=== PATIENT | male | born 1940 | race Caucasian/White ===

== ENCOUNTER 2021-07-27 17:06 | Emergency (ER) | payer MEDICARE, BC ==
[2021-07-27] MEDS ORDERED: Acetaminophen 500 MG Tab PO ONE (17:55)
--- NOTE | 2021-07-27 18:45 | PCM.EKG ---
#1 Interpretation EKG Date: 07/27/21 Time: 17:40 Rhythm: Other (Ventricular Pace) Rate (Beats/Min): 66 Comparison: NA - No Prior EKG EKG Interpretation Comments: Ventricular Paced Rhythm
--- NOTE | 2021-07-27 18:45 | EDM.PDOC ---
ED HPI GENERAL MEDICAL PROBLEM - General Chief Complaint: Respiratory Problem Stated Complaint: SOB HEADACHE TREMORS Time Seen by Provider: 07/27/21 17:44 - History of Present Illness INITIAL COMMENTS - FREE TEXT/NARRATIVE: CHIEF COMPLAINT(S): Shortness of breath HISTORY OF PRESENT ILLNESS: This is a 81-year-old man with a past medical history of CAD status post stents, prior history of CVA, CABG, hypertension who had a home positive Covid test approximately 2 days ago who comes to the emergency department with a chief complaint of shortness of breath. The patient states that he has been experiencing shortness of breath and he started to have some shaking today. He denies any chest pain, abdominal pain, nausea or vomiting. He denies any headache, blurry vision, loss of vision. He denies any trouble walking, speaking or swallowing. The daughter who is in presents states that the patient is Covid positive and given the shaking her daughter had done an ECG and they noticed that his heart rate was low so they brought him to the emergency department. She states that he has had some increased swelling in his lower extremities but denies any other symptoms. She states that he did have a fever of 102 at home. She states she called their primary care physician and they told them to come to the emergency department for monoclonal antibody infusion. REVIEW OF SYSTEMS: Constitutional: Positive for fever Eyes: Denies eye pain Ears, Nose, Mouth, & Throat: Denies earache Cardiovascular: Denies chest pain Respiratory: Positive for shortness of breath Gastrointestinal: Denies Nausea, vomiting, diarrhea, hematochezia. Genitourinary: Denies hematuria Skin:Denies a rash MSK: Positive for shaking. Denies joint pain Neurological: Denies blurred vision, numbness, tingling, weakness Psychiatric: Denies depression PAST MEDICAL HISTORY: As per history of present illness and as reviewed below otherwise noncontributory. SURGICAL HISTORY: As per history of present illness and as reviewed below otherwise noncontributory. SOCIAL HISTORY: As per history of present illness and as reviewed below otherwise noncontributory. FAMILY HISTORY: As per history of present illness and as reviewed below otherwise noncontributory. EXAMINATION OF ORGAN SYSTEMS/BODY AREAS: Constitutional: Blood pressure was 125/73, heart rate 85, respiratory rate 20 with an oxygen saturation 93% on room air. Temperature 37.3 General: Elderly man who does not appear to be in acute distress Psychiatric: Appropriate mood and affect. Eyes: No scleral icterus or conjunctival erythema ENMT: Moist mucous membranes. No pharyngeal erythema Cardiovascular: Regular, rate, and rhythm. No gallops, murmurs, or rubs. Bilateral upper extremity pulses symmetric and intact. 1+ pitting edema of the bilateral lower extremities. No JVD. Respiratory: Lungs clear to auscultation bilaterally. No wheezes, rales, or rhonchi. Speaking in full sentences. Gastrointestinal: Soft, non-tender, non-distended. Normoactive bowel sounds Genitourinary: No suprapubic tenderness Musculoskeletal: Normal range of motion. Skin: No lesions or abrasions. Neurological: Alert, GCS 15 MEDICAL DECISION MAKING AND COURSE IN THE ED WITH INTERPRETATION/REVIEW OF DIAGNOSTIC STUDIES: This is a 81-year-old man with a past medical history of CAD status post stent and CABG, hypertension and recent diagnosis of COVID-19 at home who comes to the emergency department with acute shortness of breath, shaking, and lower extremity edema who is mildly hypoxic but appears well. At this time we did obtain a screening EKG given the concern for bradycardia. It did reveal a ventricularly paced rhythm. At this time we will interrogate the device to evaluate for any other rhythms and to interrogate if the device is working appropriately. Will obtain a urinalysis, CBC, CMP, troponin, BNP, chest x-ray. Cardiac monitoring at this time did reveal a ventricular paced rhythm at 66 and pulse oximetry with good waveform was 93 to 94% on room air. Laboratory: CBC reveals a normocytic anemia with a hemoglobin 11.2 hematocrit of 34.6 which is unchanged from prior. INR is normal. Lactic acid is 1.0. COVID- 19 PCR is positive. BNP is mildly elevated at 214. CMP reveals elevated creatinine at 1.6, this is unchanged from July 23, 2021. The BUN did improve from 20 down to 17., Hyperglycemia at 109, hypocalcemia at 7.5, elevation in alkaline phosphatase at 140 which is improved from July 23, 2021. Hypoalbuminemia at 3.0. Urinalysis is negative. The radiological images were viewed by myself along with reading the report from the radiologist. Chest x-ray reveals a small left pleural effusion with some linear opacities in the lower mid left lung. There is a more focal density within the left midlung measuring 2.5 cm. This could be an area of focal atelectasis or pneumonia, loculated pleural fluid or underlying mass. Given that the patient's oxygenation is within normal limits, the patient is not tachypneic I do believe the x-ray findings are likely secondary to COVID-19 given that he was just recently diagnosed 3 days ago. He does have small left pleural effusion however his BNP is not elevated and again that he is not hypertensive or hypoxic. I do believe that diuresis in this patient will likely worsen outcome therefore we will hold off at this time. I did discuss the results with the daughter and patient at bedside. In addition the interrogation of the defibrillator/pacemaker did reveal 2 episodes of 8-second ventricular tachycardia which was paced out. There is no defibrillation. The pacemaker is working as appropriate. At this time I did discuss benefits and risks of monoclonal antibody infusion. I did discuss strict return precautions. They were amenable to discharge at this time and had no further questions. DISPOSITION: The patient was discharged home in stable condition. The patient will follow up with for his infusion likely tomorrow with his primary care suzanne mueller after the 10-day isolation. CONDITION: Fair PROCEDURES: Cardiac monitoring interpretation, pulse oximetry interpretation FINAL IMPRESSION(S)/DIAGNOSES: 1. Acute dyspnea secondary to COVID-19 pneumonia 2. Acute small left-sided pleural effusion Critical Care Procedure Note Authorized and performed by: Tirso Pendleton M.D. Critical Care Time: 40 minutes Due to a high probability of clinically significant, life threatening deterioration, the patient required my highest level of preparedness to intervene emergently and I personally spent this critical care time directly and personally managing the patient. This critical care time included obtaining a history, examining the patient, pulse oximetry; ordering and review of studies; arranging urgent treatment with development of a management plan; evaluation of a patients reponse to treatment; frequent assessment; and discussions with other providers. This critical care time was performed to assess and manage the high probability of imminent, life threatening deterioration that could result in multiorgan failure. It was exclusive of separate billable procedures and treating other patients. Please see MDM section and rest of the note for further information on patient assessment and treatment. Please see MDM section and rest of the note for further information on patient assessment and treatment. Tirso Pendleton M.D. - Related Data Allergies Allergy/AdvReac Type Severity Reaction Status Date / Time No Known Allergies Allergy Verified 07/27/21 18:04 Home Meds: Home Meds . [No Known Home Meds] 07/27/21 [History] Past Medical History - Infectious Disease History Infectious Disease History: Reports: Chicken Pox ED ROS GENERAL - Review of Systems Review Of Systems: See Below ED EXAM, GENERAL - Physical Exam Exam: See Below Course - Vital Signs Last Recorded V/S: Last Vital Signs Temp 37.3 C 07/27/21 17:40 Pulse 63 07/27/21 19:37 Resp 18 07/27/21 19:37 BP 103/55 L 07/27/21 19:37 Pulse Ox 95 07/27/21 19:37 - Orders/Labs/Meds Orders: Active Orders 24 hr Category Date Time Status Isolation [COMM] Routine Oth 07/27/21 17:40 Active Labs: Laboratory Tests 07/27/21 07/27/21 07/27/21 Range/Units 17:45 17:50 17:50 WBC 4.49 (4.0-11.0) K/uL RBC 4.03 L (4.50-5.90) M/uL Hgb 11.2 L (13.0-17.0) g/dL Hct 34.6 L (38.0-50.0) % MCV 85.9 (80.0-98.0) fL MCH 27.8 (27.0-32.0) pg MCHC 32.4 (31.0-37.0) g/dL RDW Std Deviation 51.5 (28.0-62.0) fl RDW Coeff of Aparna 16 H (11.0-15.0) % Plt Count 207 (150-400) K/uL MPV 9.50 (7.40-12.00) fL Neut % (Auto) 74.0 (48.0-80.0) % Lymph % (Auto) 13.1 L (16.0-40.0) % [place] % (Auto) 10.7 (0.0-15.0) % Eos % (Auto) 2.0 (0.0-7.0) % Baso % (Auto) 0.2 (0.0-1.5) % Neut # (Auto) 3.3 (1.4-5.7) K/uL Lymph # (Auto) 0.6 (0.6-2.4) K/uL [place] # (Auto) 0.5 (0.0-0.8) K/uL Eos # (Auto) 0.1 (0.0-0.7) K/uL Baso # (Auto) 0.0 (0.0-0.1) K/uL Nucleated RBC % 0.0 /100WBC Nucleated RBCs # 0 K/uL INR 1.07 Sodium (136-148) mmol/L Potassium (3.5-5.1) mmol/L Chloride (98-107) mmol/L Carbon Dioxide (21.0-32.0) mmol/L BUN (7.0-18.0) mg/dL Creatinine (0.8-1.3) mg/dL Est Cr Clr Drug Dosing mL/min Estimated GFR (MDRD) ml/min Glucose (74-106) mg/dL Lactic Acid (0.4-2.0) mmol/L Calcium (8.5-10.1) mg/dL Total Bilirubin (0.2-1.0) mg/dL AST (15-37) IU/L ALT (14-63) IU/L Alkaline Phosphatase (46-116) U/L Troponin I (0.000-0.056) ng/mL B-Natriuretic Peptide (<100) PG/ML Total Protein (6.4-8.2) g/dL Albumin (3.4-5.0) g/dL Globulin (2.6-4.0) g/dL Albumin/Globulin Ratio (0.9-1.6) Urine Color Urine Appearance Urine pH (5.0-8.0) Ur Specific [place] (1.001-1.035) Urine Protein (NEGATIVE) mg/dL Urine Glucose (UA) (NEGATIVE) mg/dL Urine Ketones (NEGATIVE) mg/dL Urine Occult Blood (NEGATIVE) Urine Nitrite (NEGATIVE) Urine Bilirubin (NEGATIVE) Urine Urobilinogen (<2.0) EU/dL Ur Leukocyte Esterase (NEGATIVE) Urine RBC (0-2/HPF) Urine WBC (0-5/HPF) Ur Epithelial Cells (NONE-FEW) Urine Bacteria (NEGATIVE) Urine Mucus (NONE-MOD) SARS-CoV-2 RNA (ANIYAH) POSITIVE H (NEGATIVE) 07/27/21 07/27/21 07/27/21 Range/Units 17:50 17:50 17:50 WBC (4.0-11.0) K/uL RBC (4.50-5.90) M/uL Hgb (13.0-17.0) g/dL Hct (38.0-50.0) % MCV (80.0-98.0) fL MCH (27.0-32.0) pg MCHC (31.0-37.0) g/dL RDW Std Deviation (28.0-62.0) fl RDW Coeff of Aparna (11.0-15.0) % Plt Count (150-400) K/uL MPV (7.40-12.00) fL Neut % (Auto) (48.0-80.0) % Lymph % (Auto) (16.0-40.0) % [place] % (Auto) (0.0-15.0) % Eos % (Auto) (0.0-7.0) % Baso % (Auto) (0.0-1.5) % Neut # (Auto) (1.4-5.7) K/uL Lymph # (Auto) (0.6-2.4) K/uL [place] # (Auto) (0.0-0.8) K/uL Eos # (Auto) (0.0-0.7) K/uL Baso # (Auto) (0.0-0.1) K/uL Nucleated RBC % /100WBC Nucleated RBCs # K/uL INR Sodium 138 (136-148) mmol/L Potassium 4.1 (3.5-5.1) mmol/L Chloride 102 (98-107) mmol/L Carbon Dioxide 24.5 (21.0-32.0) mmol/L BUN 17 (7.0-18.0) mg/dL Creatinine 1.6 H (0.8-1.3) mg/dL Est Cr Clr Drug Dosing 39.07 mL/min Estimated GFR (MDRD) 41.6 ml/min Glucose 109 H (74-106) mg/dL Lactic Acid 1.0 (0.4-2.0) mmol/L Calcium 7.5 L (8.5-10.1) mg/dL Total Bilirubin 0.5 (0.2-1.0) mg/dL AST 25 (15-37) IU/L ALT 24 (14-63) IU/L Alkaline Phosphatase 140 H (46-116) U/L Troponin I < 0.050 (0.000-0.056) ng/mL B-Natriuretic Peptide 214 H (<100) PG/ML Total Protein 7.2 (6.4-8.2) g/dL Albumin 3.0 L (3.4-5.0) g/dL Globulin 4.2 H (2.6-4.0) g/dL Albumin/Globulin Ratio 0.7 L (0.9-1.6) Urine Color Urine Appearance Urine pH (5.0-8.0) Ur Specific [place] (1.001-1.035) Urine Protein (NEGATIVE) mg/dL Urine Glucose (UA) (NEGATIVE) mg/dL Urine Ketones (NEGATIVE) mg/dL Urine Occult Blood (NEGATIVE) Urine Nitrite (NEGATIVE) Urine Bilirubin (NEGATIVE) Urine Urobilinogen (<2.0) EU/dL Ur Leukocyte Esterase (NEGATIVE) Urine RBC (0-2/HPF) Urine WBC (0-5/HPF) Ur Epithelial Cells (NONE-FEW) Urine Bacteria (NEGATIVE) Urine Mucus (NONE-MOD) SARS-CoV-2 RNA (ANIYAH) (NEGATIVE) 07/27/21 Range/Units 18:02 WBC (4.0-11.0) K/uL RBC (4.50-5.90) M/uL Hgb (13.0-17.0) g/dL Hct (38.0-50.0) % MCV (80.0-98.0) fL MCH (27.0-32.0) pg MCHC (31.0-37.0) g/dL RDW Std Deviation (28.0-62.0) fl RDW Coeff of Aparna (11.0-15.0) % Plt Count (150-400) K/uL MPV (7.40-12.00) fL Neut % (Auto) (48.0-80.0) % Lymph % (Auto) (16.0-40.0) % [place] % (Auto) (0.0-15.0) % Eos % (Auto) (0.0-7.0) % Baso % (Auto) (0.0-1.5) % Neut # (Auto) (1.4-5.7) K/uL Lymph # (Auto) (0.6-2.4) K/uL [place] # (Auto) (0.0-0.8) K/uL Eos # (Auto) (0.0-0.7) K/uL Baso # (Auto) (0.0-0.1) K/uL Nucleated RBC % /100WBC Nucleated RBCs # K/uL INR Sodium (136-148) mmol/L Potassium (3.5-5.1) mmol/L Chloride (98-107) mmol/L Carbon Dioxide (21.0-32.0) mmol/L BUN (7.0-18.0) mg/dL Creatinine (0.8-1.3) mg/dL Est Cr Clr Drug Dosing mL/min Estimated GFR (MDRD) ml/min Glucose (74-106) mg/dL Lactic Acid (0.4-2.0) mmol/L Calcium (8.5-10.1) mg/dL Total Bilirubin (0.2-1.0) mg/dL AST (15-37) IU/L ALT (14-63) IU/L Alkaline Phosphatase (46-116) U/L Troponin I (0.000-0.056) ng/mL B-Natriuretic Peptide (<100) PG/ML Total Protein (6.4-8.2) g/dL Albumin (3.4-5.0) g/dL Globulin (2.6-4.0) g/dL Albumin/Globulin Ratio (0.9-1.6) Urine Color YELLOW Urine Appearance CLEAR Urine pH 5.5 (5.0-8.0) Ur Specific [place] 1.020 (1.001-1.035) Urine Protein NEGATIVE (NEGATIVE) mg/dL Urine Glucose (UA) NEGATIVE (NEGATIVE) mg/dL Urine Ketones NEGATIVE (NEGATIVE) mg/dL Urine Occult Blood SMALL H (NEGATIVE) Urine Nitrite NEGATIVE (NEGATIVE) Urine Bilirubin NEGATIVE (NEGATIVE) Urine Urobilinogen 0.2 (<2.0) EU/dL Ur Leukocyte Esterase NEGATIVE (NEGATIVE) Urine RBC 0-2 (0-2/HPF) Urine WBC 0-1 (0-5/HPF) Ur Epithelial Cells RARE (NONE-FEW) Urine Bacteria RARE (NEGATIVE) Urine Mucus LIGHT (NONE-MOD) SARS-CoV-2 RNA (ANIYAH) (NEGATIVE) Meds: Medications Discontinued Medications Generic Name Dose Route Start Last Admin Trade Name Dennis PRN Reason Stop Dose Admin Acetaminophen 1,000 mg 07/27/21 17:55 07/27/21 18:07 Acetaminophen 500 Mg Tab PO 07/27/21 17:56 1,000 mg ONETIME ONE Administration Departure - Departure Time of Disposition: 19:17 Disposition: Home, Self-Care 01 Condition: Fair Clinical Impression: COVID-19 - Discharge Information *PRESCRIPTION DRUG MONITORING PROGRAM REVIEWED*: No *COPY OF PRESCRIPTION DRUG MONITORING REPORT IN PATIENT TOO: No Instructions: COVID-19 Frequently Asked Questions, 10 Things You Can Do to Manage Your COVID-19 Symptoms at Home - [facility] (04/27/2021), Symptoms of COVID-19 - [facility] (12/04/2020), COVID-19: Quarantine vs. Isolation - [facility] (09/28/2020), COVID- 19: What to Do If You Are Sick- [facility] (12/27/2020) Referrals: Jairo Sandoval MD [Primary Care Provider] - Forms: ED Department Discharge Additional Instructions: You should take acetaminophen 500-1000 mg every 6 hours as needed for fever and muscle aches. Please drink fluids and get plenty of rest over the next several days. We would recommend that she get a pulse oximeter from the pharmacy to keep an eye on your oxygen level. If your oxygen level drops below 91%, you should return to the ED for evaluation. You should return to the ER sooner if you start having any symptoms of shortness of breath or any other new or concerning symptoms. 1. Your COVID-19 screening is positive. That means you do have the coronavirus and you are considered contagious. Your vital signs and oxygen saturation are well enough that you were able to monitor your symptoms at home. Continue to monitor for trouble breathing, new confusion or inability to arouse, bluish lips or face or any of the other symptoms we discussed -if this occurs please return to the emergency room. 2. Please self quarantine over the next 10 days. Inform any persons that you have been in contact with since you started becoming symptomatic that you have tested positive; they should be made aware and take the appropriate steps as needed. 3. May alternate Tylenol and ibuprofen as needed for pain and fever management. 4. The [facility] will be calling you and following up with you. The [facility] Hotline phone number , They are open Friday - Friday 7am - 7pm. Follow up with your primary care provider for re-evaluation and re-testing after the 10 day quarantine and discuss when you should be seen. [facility] - [facility] [address] [place] [id number] [facility] [address] [place] [id number] The patient is informed of any results of their evaluation and diagnostic workup and all questions are answered. They are given discharge instructions and return precautions. The patient is stable for discharge. The patient states they understand and agree with the plan and that they will return if their symptoms get worse or if they have any new concerns. The following information is given to patients seen in the emergency department who are being discharged to home. This information is to outline your options for follow-up care. We provide all patients seen in our emergency department with a follow-up referral. The need for follow-up, as well as the timing and circumstances, are variable depending upon the specifics of your emergency department visit. If you don't have a primary care physician on staff, we will provide you with a referral. We always advise you to contact your personal physician following an emergency department visit to inform them of the circumstance of the visit and for follow-up with them and/or the need for any referrals to a consulting specialist. The emergency department will also refer you to a specialist when appropriate. This referral assures that you have the opportunity for follow-up care with a specialist. All of these measure are taken in an effort to provide you with optimal care, which includes your follow-up. Under all circumstances we always encourage you to contact your private physician who remains a resource for coordinating your care. When calling for follow-up care, please make the office aware that this follow-up is from your recent emergency room visit. If for any reason you are refused follow-up, please contact the [facility] Emergency Department at and asked to speak to the emergency department charge nurse. Sepsis Event Note (ED) - Evaluation Sepsis Screening Result: No Definite Risk - My Orders Last 24 Hours: My Active Orders 07/27/21 17:40 Isolation [COMM] Routine - Assessment/Plan Last 24 Hours: My Active Orders 07/27/21 17:40 Isolation [COMM] Routine
[2021-07-27 18:56] LABS: BLOOD UREA NITROGEN,BUN 17 mg/dL (7.0-18.0); CARBON DIOXIDE,CO2 24.5 mmol/L (21.0-32.0); CHLORIDE,CL 102 mmol/L (98-107); GLUCOSE RANDOM 109 mg/dL (74-106); POTASSIUM,K 4.1 mmol/L (3.5-5.1); SODIUM,NA 138 mmol/L (136-148)
--- NOTE | 2021-07-27 19:00 | CR ---
Indication: Shortness of breath Technique: Chest 1 view Comparison: None Findings/Impression: Cardiovascular and mediastinum: Normal heart size with left-sided tripolar defibrillator. Atherosclerosis. Lungs and pleural space: Small left pleural effusion with some linear opacities in left mid lower lung. More focal density within the left midlung measuring 2.5 centimeters. Differential for this opacity includes an area of consolidation such as focal atelectasis or pneumonia, loculated pleural fluid or underlying mass. Chest CT may be helpful in this differentiation. Bones and soft tissues: Status post median sternotomy. Dictated by Moy Polk MD @ 07/27/2021 6:59:01 PM (Electronically Signed)
== END 2021-07-27 19:46 | disposition home or self-care (01) ==
LOC: MW.ED 17:06
DX: U07.1 COVID-19 (principal); J12.82 Pneumonia due to coronavirus disease 2019; J90 Pleural effusion, not elsewhere classified; I25.810 Atherosclerosis of coronary artery bypass graft(s) without angina pectoris; I10 Essential (primary) hypertension; R79.1 Abnormal coagulation profile
CPT/HCPCS: 36415; 51798; 71045; 80053; 81001; 83605; 83880; 84484; 85025; 85610; 87804; 93005; 99285; A9270; U0002

== ENCOUNTER 2022-12-30 10:10 | Emergency (ER) | payer MEDICARE, BC ==
[2022-12-30] MEDS ORDERED: Sodium Chloride 0.9% 500 ML IV ONE ×2 (10:16→12:09)
[2022-12-30 11:40] LABS: CARBON DIOXIDE,CO2 22.7 mmol/L (21.0-32.0); POTASSIUM,K 4.1 mmol/L (3.5-5.1)
== END 2022-12-30 13:08 | disposition home or self-care (01) ==
LOC: MW.ED 10:10
DX: R51.9 Headache, unspecified (principal); M54.50 Low back pain, unspecified; Z79.899 Other long term (current) drug therapy; Z79.01 Long term (current) use of anticoagulants; Z79.02 Long term (current) use of antithrombotics/antiplatelets; W18.30XA Fall on same level, unspecified, initial encounter; Y92.009 Unspecified place in unspecified non-institutional (private) residence as the place of occurrence of the external cause
CPT/HCPCS: 36415; 70450; 71045; 72125; 72170; 80053; 85025; 96360; 99284; J7030; 99283

== ENCOUNTER 2023-01-07 17:51 | Observation (INO) | payer MEDICARE, BC ==
[2023-01-07 19:13] LABS: CARBON DIOXIDE,CO2 20.9 mmol/L (21.0-32.0); POTASSIUM,K 4.3 mmol/L (3.5-5.1)
[2023-01-07] MEDS: Furosemide 40 MG/4 ML VIAL IVPUSH ONE ×2 (19:53→19:56)
[2023-01-07] MEDS ORDERED: Lidocaine/Prilocaine 2.5-2.5% Crm 5 GM Tube TOP ONE (20:40)
[2023-01-07] MEDS ORDERED: traMADol 50 MG Tab PO PRN (22:52)
[2023-01-08] MEDS ORDERED: Ferrous Sulfate 325 MG Tab PO SCH (09:00)
[2023-01-08] MEDS ORDERED: Digoxin 125 MCG Tab PO SCH (09:00)
[2023-01-08] MEDS ORDERED: Midodrine 5 MG Tab PO SCH (09:00)
[2023-01-08] MEDS: Amiodarone 200 MG Tab PO SCH (09:46)
[2023-01-08] MEDS: Clopidogrel 75 MG Tab PO SCH (09:46)
[2023-01-08] MEDS: Finasteride 5 MG Tab PO SCH (09:46)
[2023-01-08] MEDS: Apixaban 5 MG Tab PO SCH ×2 (09:46→20:57)
[2023-01-08] MEDS: Sertraline 100 MG Tab PO SCH (09:46)
[2023-01-08] MEDS: Patient's Own Medication 1 Each PO SCH ×3 (09:47→20:59)
[2023-01-08] MEDS: Digoxin 125 MCG Tab PO SCH (09:47)
[2023-01-08] MEDS: Midodrine 5 MG Tab PO SCH ×2 (09:54→20:58)
[2023-01-08] MEDS ORDERED: Furosemide 40 MG/4 ML VIAL IVPUSH ONE (10:43)
[2023-01-08] MEDS ORDERED: Acetaminophen 500 MG Tab PO PRN (13:14)
[2023-01-08] MEDS ORDERED: Lidocaine 5% 700 MG Patch TRDERM SCH (15:30)
[2023-01-08] MEDS ORDERED: Sodium Chloride 0.9% 2.5 ML Syringe FLUSH PRN (16:29)
[2023-01-08] MEDS ORDERED: Ondansetron 4 MG/2 ML SDV IVPUSH PRN (16:29)
[2023-01-08] MEDS ORDERED: Sodium Chloride 0.9% 10 ML Syringe FLUSH PRN (16:29)
[2023-01-08] MEDS ORDERED: atorvaSTATin 40 MG Tab PO SCH (21:00)
[2023-01-08] MEDS ORDERED: ARIPiprazole 10 MG Tab PO SCH (21:00)
[2023-01-09] MEDS: Patient's Own Medication 1 Each PO SCH (05:03)
[2023-01-09 07:23] LABS: POTASSIUM,K 3.3 mmol/L (3.5-5.1)
[2023-01-09] MEDS ORDERED: Potassium Chloride 10 MEQ Tab.ER PO ONE (08:09)
[2023-01-09] MEDS: Digoxin 125 MCG Tab PO SCH (08:53)
[2023-01-09] MEDS: Finasteride 5 MG Tab PO SCH (08:55)
[2023-01-09] MEDS: Clopidogrel 75 MG Tab PO SCH (08:56)
[2023-01-09] MEDS: Sertraline 100 MG Tab PO SCH (08:57)
[2023-01-09] MEDS: Amiodarone 200 MG Tab PO SCH (08:57)
[2023-01-09] MEDS: Apixaban 5 MG Tab PO SCH (08:57)
[2023-01-09] MEDS ORDERED: Midodrine 5 MG Tab PO SCH (09:00)
== END 2023-01-09 11:25 | disposition home health service (06) ==
LOC: MW.ED 17:51 → MW.MS 20:05
PROVIDERS: ADMIT Internal Medicine; ATTEND Internal Medicine
DX: R09.02 Hypoxemia (principal); J98.11 Atelectasis; R29.6 Repeated falls; I48.91 Unspecified atrial fibrillation; I50.9 Heart failure, unspecified; I25.10 Atherosclerotic heart disease of native coronary artery without angina pectoris; I25.2 Old myocardial infarction; N40.1 Benign prostatic hyperplasia with lower urinary tract symptoms; R33.8 Other retention of urine; G20 Parkinson's disease; K21.9 Gastro-esophageal reflux disease without esophagitis; F41.9 Anxiety disorder, unspecified; F32.A Depression, unspecified; Z79.899 Other long term (current) drug therapy; W19.XXXA Unspecified fall, initial encounter
CPT/HCPCS: 36415; 71045; 80048; 80162; 81001; 83735; 83880; 84484; 85025; 93005; 96374; 96376; 97161; 97530; 99285; A9270; G0378; J1940; 99284